=== PATIENT | female | born 1955 | race Hispanic/Latino ===

== ENCOUNTER 2017-10-10 16:31 | Inpatient (IN) | payer OTHER ==
[~2017-10-10] VITALS: Ht 152.4 cm; Wt 61.3 kg
[2017-10-10] MEDS ORDERED: SODIUM CHLORIDE 0.9% 1000ML 1,000 ML IV ONE ×3 (17:19→21:45)
[2017-10-10] MEDS ORDERED: ONDANSETRON HCL MDV 20ML 2 MG/ML VIAL ONE ×2 (17:19→21:17)
[2017-10-10] MEDS ORDERED: MORPHINE SULFATE 4 MG/1ML SYG ONE (17:20)
[2017-10-10 17:26] LABS: HEMATOCRIT 37.1 % (36-48); MEAN CORPUSCULAR HEMOGLOBIN 28.3 pg (27.0-33.0); MEAN CORPUSCULAR HGB CONC 34.9 g/dL (32.0-36.0); MEAN CORPUSCULAR VOLUME 81.1 fL (79-99); NUCLEATED RED BLOOD CELLS 0.1 % (0.0-0.19); PLATELET COUNT (AUTO) 139 K/uL (130-400); RED BLOOD CELL COUNT(AUTO) 4.58 MIL/uL (4.00-5.50); RED CELL DISTRIBUTION WIDTH 14.1 % (11.0-15.5); WHITE BLOOD COUNT (AUTO) 5.3 K/uL (4.8-10.8)
[2017-10-10 17:37] LABS: CREATININE 1.2 mg/dL (0.5-1.5); POTASSIUM 3.5 mmol/L (3.5-5.1)
[2017-10-10 17:41] LABS: ALBUMIN 4.1 g/dL (3.5-5.0); BILIRUBIN,TOTAL 0.5 mg/dL (0.2-1.0); TOTAL PROTEIN, SERUM 8.7 g/dL (6.0-8.3)
[2017-10-10 17:52] LABS: BAND NEUTROPHILS % (MANUAL) 16 % (0-2); LYMPHOCYTES % (MANUAL) 4 % (22-44); METAMYELOCYTES % 1 % (0-0); SEGMENTED NEUTROPHILS % 79 % (40-70)
[2017-10-10 17:53] LABS: MAN.DIFF COMMENT-IMPRESSION MANUAL DIFFERENTIAL
[2017-10-10] MEDS ORDERED: PROMETHAZINE HCL 25 MG/ML 1ML AMPULE IM ONE (17:55)
[2017-10-10] MEDS ORDERED: IOPAMIDOL-370 75 ML VIAL IV ONE (18:33)
[2017-10-10 19:31] LABS: APPEARANCE,URINE Clear (CLEAR); BILIRUBIN,URINE Negative (NEGATIVE); COLOR,URINE Yellow (YELLOW); GLUCOSE, URINE (UA) >=1000 mg/dL (NEGATIVE); KETONES,URINE Trace mg/dL (NEGATIVE); LEUKOCYTE ESTERASE ,URINE Negative (NEGATIVE); NITRATE,URINE Positive (NEGATIVE); OCCULT BLOOD,URINE Negative (NEGATIVE); PH,URINE 7.5 (5.0-8.0); PROTEIN,URINE Negative (NEGATIVE); UROBILINOGEN,URINE 0.2 mg/dL (0.2-1.0)
[2017-10-10 19:50] LABS: RBC,URINE None Seen /HPF (0-1)
[2017-10-10 19:51] LABS: BACTERIA,URINE Few /HPF (None Seen); SQUAMOUS EPITHELIAL CELL,UR 0-2 /HPF (0-2); WBC,URINE 0-1 /HPF (0-1)
[2017-10-10] MEDS ORDERED: CEFTRIAXONE SODIUM 1 GM ONE (20:00)
[2017-10-10] MEDS ORDERED: DEXTROSE 50%-WATER 50 ML DISP.SYRIN IV PRN (20:45)
[2017-10-10] MEDS ORDERED: ONDANSETRON HCL 4 MG/2 ML VIAL IVP PRN (20:45)
[2017-10-10] MEDS ORDERED: DiphenhydrAMINE HCL 50 MG/ML VIAL IVP PRN (20:45)
[2017-10-10] MEDS ORDERED: POTASSIUM CHLORIDE 20MEQ/100ML 100 ML IV PRN (20:45)
[2017-10-10] MEDS ORDERED: DIPHENHYDRAMINE HCL 25 MG CAPSULE PO PRN (20:45)
[2017-10-10] MEDS ORDERED: PROMETHAZINE HCL 25 MG/ML 1ML AMPULE IM PRN (20:45)
[2017-10-10] MEDS ORDERED: MAG HYDROX/AL HYDROX/SIMETH ES 30 ML SUSP UDCUP PO PRN (20:45)
[2017-10-10] MEDS ORDERED: GUAIFENESIN SUGAR-FREE 100 MG/5 ML UDCUP PO PRN (20:45)
[2017-10-10] MEDS ORDERED: ACETAMINOPHEN 325 MG TAB PO PRN (20:45)
[2017-10-10] MEDS ORDERED: GLUCAGON 1MG KIT 1 MG ML IM PRN (20:45)
[2017-10-10] MEDS ORDERED: HYDROCODONE/ACETAMINOPHEN 5/325 MG TAB PO PRN (20:45)
[2017-10-10] MEDS ORDERED: NITROGLYCERIN 0.4 MG SL TAB SL PRN (20:45)
[2017-10-10] MEDS ORDERED: LACTULOSE 20 GM/30 ML UDCUP PO PRN (20:45)
[2017-10-10] MEDS ORDERED: POTASSIUM CHLORIDE 10% ELIXIR 20 MEQ/15 ML UDCUP PO PRN (20:45)
[2017-10-10] MEDS ORDERED: CLONIDINE HCL 0.1 MG TABLET PO PRN (20:45)
[2017-10-10] MEDS ORDERED: ZOLPIDEM TARTRATE 5 MG TAB PO PRN (20:45)
[2017-10-10] MEDS ORDERED: LIDOCAINE HCL-MPF 1% 2ML VIAL IJ PRN (20:45)
[2017-10-10] MEDS ORDERED: GUAIFENESIN-DM 200/20 MG 10 ML PO PRN (20:45)
[2017-10-10] MEDS ORDERED: LEVOFLOXACIN 500 MG/D5W 100 ML 100 ML ONE (21:29)
[2017-10-10] MEDS ORDERED: ACETAMINOPHEN 650 MG SUPPOSITORY RC ONE (21:46)
[2017-10-10] MEDS ORDERED: NOREPINEPHRINE BITARTRATE 1 MG/1 ML ML IV ONE (22:57)
[2017-10-11] VITALS (32 sets, daily range): BP systolic 87–150; BP diastolic 47–86
[2017-10-11] MEDS: SODIUM CHLORIDE 0.9% 1000ML 1,000 ML IV SCH ×3 (00:30→17:47)
[2017-10-11] MEDS: INSULIN R PO SS2 SQ SCH ×5 (00:31→21:00)
[2017-10-11] MEDS: TRAMADOL HCL 50 MG TABLET PO PRN (01:24)
[2017-10-11] MEDS ORDERED: GLIP10TA9 PO (01:48)
[2017-10-11] MEDS ORDERED: GEMF600T3 PO (01:48)
[2017-10-11] MEDS ORDERED: NOREPINEPHRINE 4MG/NS 250ML 250 ML IV SCH (02:00)
[2017-10-11 04:19] LABS: HEMATOCRIT 28.1 % (36-48); MEAN CORPUSCULAR HEMOGLOBIN 29.9 pg (27.0-33.0); MEAN CORPUSCULAR HGB CONC 36.4 g/dL (32.0-36.0); MEAN CORPUSCULAR VOLUME 82.1 fL (79-99); PLATELET COUNT (AUTO) 88 K/uL (130-400); RED BLOOD CELL COUNT(AUTO) 3.43 MIL/uL (4.00-5.50); WHITE BLOOD COUNT (AUTO) 10.8 K/uL (4.8-10.8)
[2017-10-11 04:27] LABS: ALBUMIN 2.4 g/dL (3.5-5.0); BILIRUBIN,TOTAL 0.6 mg/dL (0.2-1.0); CREATININE 1.5 mg/dL (0.5-1.5); POTASSIUM 3.6 mmol/L (3.5-5.1); TOTAL PROTEIN, SERUM 5.7 g/dL (6.0-8.3)
[2017-10-11] MEDS: POTASSIUM CHLORIDE 20 MEQ ERTAB PO PRN ×2 (05:32→07:01)
[2017-10-11] MEDS ORDERED: CEFEPIME 1GM+NS 50ML 50 ML IV SCH (13:00)
[2017-10-11] MEDS ORDERED: LACTATED RINGERS 1000ML 1,000 ML IV ONE (13:02)
[2017-10-11] MEDS: CEFEPIME HCL 1 GM VIAL IVP SCH ×2 (14:26→22:04)
[2017-10-11] MEDS ORDERED: LACTATED RINGERS 1000ML IV ONE (15:00)
[2017-10-11] MEDS ORDERED: CEFTRIAXONE SODIUM 1 GM IVP SCH (20:00)
[2017-10-12] VITALS (17 sets, daily range): BP systolic 109–164; BP diastolic 62–97
[2017-10-12] MEDS: SODIUM CHLORIDE 0.9% 1000ML 1,000 ML IV SCH ×4 (01:07→20:27)
[2017-10-12 03:56] LABS: BASOPHILS % (AUTO) 0.3 % (0.0-5.0); EOSINOPHILS % (AUTO) 0.9 % (0.0-8.0); HEMATOCRIT 27.2 % (36-48); MEAN CORPUSCULAR HEMOGLOBIN 29.5 pg (27.0-33.0); MEAN CORPUSCULAR VOLUME 81.9 fL (79-99); MONOCYTES % (AUTO) 7.7 % (3.0-13.0); NEUTROPHILS % (AUTO) 83.1 % (40.0-77.0); PLATELET COUNT (AUTO) 70 K/uL (130-400); RED BLOOD CELL COUNT(AUTO) 3.31 MIL/uL (4.00-5.50); RED CELL DISTRIBUTION WIDTH 14.3 % (11.0-15.5); WHITE BLOOD COUNT (AUTO) 15.1 K/uL (4.8-10.8)
[2017-10-12 04:24] LABS: ALBUMIN 2.3 g/dL (3.5-5.0); BILIRUBIN,TOTAL 0.5 mg/dL (0.2-1.0); CREATININE 1.3 mg/dL (0.5-1.5); MAGNESIUM 1.5 mg/dL (1.80-2.40); PHOSPHORUS 1.5 mg/dL (2.5-4.9); POTASSIUM 4.1 mmol/L (3.5-5.1); TOTAL PROTEIN, SERUM 5.8 g/dL (6.0-8.3)
[2017-10-12] MEDS: INSULIN R PO SS2 SQ SCH ×4 (07:30→21:00)
[2017-10-12] MEDS: CEFEPIME HCL 1 GM VIAL IVP SCH ×2 (08:19→14:47)
[2017-10-12] MEDS: ENOXAPARIN SODIUM 40 MG/0.4 ML SYRINGE SQ SCH ×2 (08:20→09:00)
[2017-10-12 11:13] LABS: HEMATOCRIT 28.3 % (36-48); MEAN CORPUSCULAR HEMOGLOBIN 27.6 pg (27.0-33.0); MEAN CORPUSCULAR HGB CONC 33.4 g/dL (32.0-36.0); MEAN CORPUSCULAR VOLUME 82.6 fL (79-99); PLATELET COUNT (AUTO) 66 K/uL (130-400); RED BLOOD CELL COUNT(AUTO) 3.42 MIL/uL (4.00-5.50); RED CELL DISTRIBUTION WIDTH 14.3 % (11.0-15.5); RETICULOCYTE % (AUTO) 0.74 % (0.42-2.23); WHITE BLOOD COUNT (AUTO) 14.8 K/uL (4.8-10.8)
[2017-10-12 11:33] LABS: BAND NEUTROPHILS % (MANUAL) 23 % (0-2); LYMPHOCYTES % (MANUAL) 9 % (22-44); MAN.DIFF COMMENT-IMPRESSION MANUAL DIFFERENTIAL; METAMYELOCYTES % 2 % (0-0); MONOCYTES % (MANUAL) 2 % (2-9); SEGMENTED NEUTROPHILS % 64 % (40-70)
[2017-10-12 11:34] LABS: PLATELET MORPHOLOGY COMMENT DECREASED
[2017-10-12] MEDS: DOCUSATE SODIUM 100 MG CAP PO SCH (14:58)
[2017-10-12] MEDS ORDERED: POTASSIUM PHOS 15 mMOL+NS250ML 250 ML IV SCH (16:00)
[2017-10-12] MEDS ORDERED: MAGNESIUM SULFATE 1 GM in SODIUM CHLORIDE 0.9% 50 ML IV PRN (16:00)
[2017-10-12] MEDS ORDERED: MAGNESIUM 2GM PREMIX 50ML 50 ML IV SCH (18:15)
[2017-10-12] MEDS ORDERED: ONDANSETRON HCL MDV 20ML 2 MG/ML VIAL ONE (18:22)
[2017-10-12] MEDS: TRAMADOL HCL 50 MG TABLET PO PRN (22:21)
[2017-10-13] MEDS: CEFEPIME HCL 1 GM VIAL IVP SCH ×4 (00:04→22:33)
[2017-10-13] MEDS: SODIUM CHLORIDE 0.9% 1000ML 1,000 ML IV SCH ×4 (03:07→22:33)
[2017-10-13 04:00] VITALS: BP 149/81
[2017-10-13 05:44] LABS: BASOPHILS % (AUTO) 0.2 % (0.0-5.0); HEMATOCRIT 28.6 % (36-48); LYMPHOCYTES % (AUTO) 5.5 % (21.0-51.0); MEAN CORPUSCULAR HEMOGLOBIN 27.7 pg (27.0-33.0); MEAN CORPUSCULAR HGB CONC 33.6 g/dL (32.0-36.0); MEAN CORPUSCULAR VOLUME 82.6 fL (79-99); MONOCYTES % (AUTO) 6.2 % (3.0-13.0); NEUTROPHILS % (AUTO) 88.1 % (40.0-77.0); PLATELET COUNT (AUTO) 75 K/uL (130-400); RED BLOOD CELL COUNT(AUTO) 3.46 MIL/uL (4.00-5.50); RED CELL DISTRIBUTION WIDTH 14.4 % (11.0-15.5); WHITE BLOOD COUNT (AUTO) 14.1 K/uL (4.8-10.8)
[2017-10-13 05:54] LABS: INR 1.02 (0.85-1.15); PROTHROMBIN TIME 10.7 SEC (9.6-11.6)
[2017-10-13] MEDS: INSULIN R PO SS2 SQ SCH ×4 (05:54→21:00)
[2017-10-13 05:57] LABS: HEMOGLOBIN A1C 9.8 % (4.0-6.0)
[2017-10-13 05:59] LABS: ALANINE AMINOTRANSFERASE 14 U/L (12-78); ALBUMIN 2.2 g/dL (3.5-5.0); ASPARTATE AMINOTRANSFERASE 19 U/L (10-37); BILIRUBIN,TOTAL 0.5 mg/dL (0.2-1.0); CARBON DIOXIDE 22 mmol/L (21-32); CHLORIDE 107 mmol/L (101-111); CHOLESTEROL 138 mg/dL (<200); CREATININE 0.9 mg/dL (0.5-1.5); GLOMERULAR FILTR. RATE CALC 67 mL/min (>60); GLUCOSE,RANDOM 147 mg/dL (70-105); HDL CHOLESTEROL 12 mg/dL (35-85); LDL DIRECT 72 mg/dL (0-99); PHOSPHORUS 2.7 mg/dL (2.5-4.9); POTASSIUM 4.2 mmol/L (3.5-5.1); SODIUM SERUM 140 mmol/L (136-145); TOTAL PROTEIN, SERUM 6.1 g/dL (6.0-8.3); TRIGLYCERIDES 268 mg/dL (30-200); UREA NITROGEN, BLOOD 12 mg/dL (7-18)
[2017-10-13 06:00] LABS: AMMONIA < 10 umol/L (11-32)
[2017-10-13] MEDS ORDERED: ONDANSETRON HCL MDV 20ML 2 MG/ML VIAL ONE (06:34)
[2017-10-13 07:00] VITALS: BP 133/74
[2017-10-13] MEDS: ACETAMINOPHEN 325 MG TAB PO PRN (08:57)
[2017-10-13] MEDS: ONDANSETRON HCL MDV 20ML 2 MG/ML VIAL IVP PRN ×2 (10:33→15:31)
[2017-10-13 11:00] VITALS: BP 135/78
[2017-10-13] MEDS: DOCUSATE SODIUM 100 MG CAP PO SCH (14:30)
[2017-10-13 19:35] VITALS: BP 153/92
[2017-10-13] MEDS: METOCLOPRAMIDE 10 MG TABLET PO SCH (20:11)
[2017-10-13 23:58] VITALS: BP 144/82
[2017-10-14] MEDS: TRAMADOL HCL 50 MG TABLET PO PRN ×2 (02:05→06:44)
[2017-10-14 04:20] VITALS: BP 148/79
[2017-10-14] MEDS: CEFEPIME HCL 1 GM VIAL IVP SCH ×3 (06:44→23:22)
[2017-10-14] MEDS: ONDANSETRON HCL MDV 20ML 2 MG/ML VIAL IVP PRN ×2 (06:44→14:13)
[2017-10-14] MEDS: SODIUM CHLORIDE 0.9% 1000ML 1,000 ML IV SCH ×4 (06:45→21:41)
[2017-10-14 07:00] VITALS: BP 149/88
[2017-10-14] MEDS: INSULIN R PO SS2 SQ SCH ×4 (07:29→21:00)
[2017-10-14] MEDS: METOCLOPRAMIDE 10 MG TABLET PO SCH ×2 (09:03→21:23)
[2017-10-14 11:00] VITALS: BP 152/89
[2017-10-14] MEDS: DOCUSATE SODIUM 100 MG CAP PO SCH (11:18)
[2017-10-14 19:25] VITALS: BP 147/61
[2017-10-14] MEDS: ACETAMINOPHEN 325 MG TAB PO PRN (21:42)
[2017-10-15 00:35] VITALS: BP 121/66
[2017-10-15] MEDS: SODIUM CHLORIDE 0.9% 1000ML 1,000 ML IV SCH ×5 (01:47→20:14)
[2017-10-15 03:37] VITALS: BP 120/60
[2017-10-15] MEDS: CEFEPIME HCL 1 GM VIAL IVP SCH (06:11)
[2017-10-15] MEDS: INSULIN R PO SS2 SQ SCH ×3 (06:13→21:00)
[2017-10-15 07:00] VITALS: BP 143/78
[2017-10-15] MEDS: METOCLOPRAMIDE 10 MG TABLET PO SCH ×2 (10:08→20:14)
[2017-10-15 11:00] VITALS: BP 144/72
[2017-10-15] MEDS: MEROPENEM 500 MG VIAL IVP SCH ×2 (13:32→20:14)
[2017-10-15] MEDS: DOCUSATE SODIUM 100 MG CAP PO SCH (13:32)
[2017-10-15] MEDS ORDERED: MEROPENEM 500MG+NS 50ML 50 ML IV SCH (14:00)
[2017-10-15 16:24] VITALS: BP 160/92
[2017-10-15 19:05] VITALS: BP 148/83
[2017-10-15] MEDS: ACETAMINOPHEN 325 MG TAB PO PRN (21:18)
[2017-10-16 00:20] VITALS: BP 123/70
[2017-10-16] MEDS: SODIUM CHLORIDE 0.9% 1000ML 1,000 ML IV SCH ×2 (02:16→03:41)
[2017-10-16 04:22] VITALS: BP 121/58
[2017-10-16] MEDS: MEROPENEM 500 MG VIAL IVP SCH ×2 (05:13→14:00)
[2017-10-16 06:18] LABS: BASOPHILS % (AUTO) 0.5 % (0.0-5.0); HEMATOCRIT 30.7 % (36-48); LYMPHOCYTES % (AUTO) 21.1 % (21.0-51.0); MEAN CORPUSCULAR HEMOGLOBIN 29.3 pg (27.0-33.0); MEAN CORPUSCULAR HGB CONC 36.7 g/dL (32.0-36.0); MEAN CORPUSCULAR VOLUME 79.8 fL (79-99); MONOCYTES % (AUTO) 24.2 % (3.0-13.0); NEUTROPHILS % (AUTO) 54.2 % (40.0-77.0); PLATELET COUNT (AUTO) 165 K/uL (130-400); RED BLOOD CELL COUNT(AUTO) 3.85 MIL/uL (4.00-5.50); RED CELL DISTRIBUTION WIDTH 14.1 % (11.0-15.5); WHITE BLOOD COUNT (AUTO) 4.6 K/uL (4.8-10.8)
[2017-10-16 06:35] LABS: ALBUMIN 2.5 g/dL (3.5-5.0); BILIRUBIN,TOTAL 0.5 mg/dL (0.2-1.0); CREATININE 0.8 mg/dL (0.5-1.5); POTASSIUM 3.2 mmol/L (3.5-5.1); TOTAL PROTEIN, SERUM 6.8 g/dL (6.0-8.3)
[2017-10-16] MEDS: INSULIN R PO SS2 SQ SCH ×2 (06:50→12:23)
[2017-10-16 08:00] VITALS: BP 154/86
[2017-10-16] MEDS: METOCLOPRAMIDE 10 MG TABLET PO SCH (08:48)
[2017-10-16 12:00] VITALS: BP 143/84
[2017-10-16] MEDS: POTASSIUM CHLORIDE 20 MEQ ERTAB PO PRN ×2 (12:17→14:57)
[2017-10-16] MEDS: DOCUSATE SODIUM 100 MG CAP PO SCH (14:30)
== END 2017-10-16 15:10 | disposition home or self-care (01) | DRG 871 ==
LOC: EDH 16:31 → EDHIP 16:32 → OBSVTOIN 16:32 → 2BH 10-11 00:25 → 3DH 10-12 22:16
PROVIDERS: ADMIT Family Medicine; ATTEND Family Medicine
DX: A41.51 Sepsis due to Escherichia coli [E. coli] (principal); R65.21 Severe sepsis with septic shock; D69.6 Thrombocytopenia, unspecified; N13.30 Unspecified hydronephrosis; E86.0 Dehydration; N39.0 Urinary tract infection, site not specified; B96.89 Other specified bacterial agents as the cause of diseases classified elsewhere; E11.9 Type 2 diabetes mellitus without complications; E78.5 Hyperlipidemia, unspecified; I10 Essential (primary) hypertension
CPT/HCPCS: 36415; 71045; 74177; 76705; 80053; 80061; 81001; 82140; 82550; 82948; 83036; 83605; 83690; 83735; 84100; 84484; 85025; 85027; 85045; 85610; 87040; 87088; 87186; 93005; 99291; A4218; J0692; J0696; J1650; J1815; J1956; J2185; J2270; J2550; J3475; J3490; J7030; J7120; Q9967

== ENCOUNTER 2021-05-26 12:06 | Emergency (ER) | payer OTHER ==
[~2021-05-26] VITALS: Ht 152.4 cm; Wt 56.7 kg
[~2021-05-26 12:06] MED LIST: GEMF600T89 PO; GLIP10TA9 PO
[2021-05-26 12:40] LABS: BASOPHILS % (AUTO) 0.8 % (0.0-5.0); EOSINOPHILS % (AUTO) 0.6 % (0.0-8.0); HEMATOCRIT 32.6 % (36-48); LYMPHOCYTES % (AUTO) 21.4 % (21.0-51.0); MEAN CORPUSCULAR HEMOGLOBIN 29.7 pg (27.0-33.0); MEAN CORPUSCULAR HGB CONC 35.6 g/dL (32.0-36.0); MEAN CORPUSCULAR VOLUME 83.6 fL (79-99); MONOCYTES % (AUTO) 10.6 % (3.0-13.0); NEUTROPHILS % (AUTO) 66.4 % (40.0-77.0); PLATELET COUNT (AUTO) 170 K/uL (130-400); RED CELL DISTRIBUTION WIDTH 12.2 % (11.0-15.5)
[2021-05-26 12:56] LABS: ALBUMIN 4.2 g/dL (3.5-5.0); BILIRUBIN,TOTAL 0.4 mg/dL (0.2-1.0); CREATININE 1.2 mg/dL (0.5-1.5); INR 1.69 (0.85-1.15); POTASSIUM 3.8 mmol/L (3.5-5.1); PROTHROMBIN TIME 17.6 SEC (9.6-11.6); TOTAL PROTEIN, SERUM 8.2 g/dL (6.0-8.3)
[2021-05-26 13:01] LABS: B-TYPE NATRIURETIC PEPTIDE 11 pg/mL (0-100)
[2021-05-26 13:16] LABS: APPEARANCE,URINE CLEAR (CLEAR); BILIRUBIN,URINE NEGATIVE (NEGATIVE); COLOR,URINE YELLOW (YELLOW); GLUCOSE, URINE (UA) NEGATIVE (NEGATIVE); KETONES,URINE NEGATIVE (NEGATIVE); LEUKOCYTE ESTERASE ,URINE NEGATIVE (NEGATIVE); NITRATE,URINE NEGATIVE (NEGATIVE); OCCULT BLOOD,URINE NEGATIVE (NEGATIVE); PROTEIN,URINE NEGATIVE (NEGATIVE); UROBILINOGEN,URINE 0.2 mg/dL (0.2-1.0)
[2021-05-26] MEDS ORDERED: NAPR-1196 PO (14:48)
[2021-05-26 14:55] VITALS: BP 133/62
== END 2021-05-26 15:03 | disposition home or self-care (01) ==
LOC: EDH 12:06
DX: R07.89 Other chest pain (principal); R53.1 Weakness; E11.9 Type 2 diabetes mellitus without complications; E78.00 Pure hypercholesterolemia, unspecified; I10 Essential (primary) hypertension; Z88.0 Allergy status to penicillin; Z88.1 Allergy status to other antibiotic agents; Z88.2 Allergy status to sulfonamides; Z79.84 Long term (current) use of oral hypoglycemic drugs
CPT/HCPCS: 36415; 71045; 80053; 81003; 83880; 84484; 85025; 85610; 93005

== ENCOUNTER 2021-11-12 15:09 | Emergency (ER) | payer OTHER ==
[~2021-11-12] VITALS: Ht 152.4 cm; Wt 54.4 kg
[~2021-11-12 15:09] MED LIST changes: +NAPR-1196 PO
[2021-11-12] MEDS ORDERED: 0.9%NACL 1000ML 1,000 ML IV SCH (15:30)
[2021-11-12] MEDS ORDERED: ONDANSETRON 4MG INJ IVP ONE (15:30)
[2021-11-12 15:35] LABS: BASOPHILS % (AUTO) 0.3 % (0.0-5.0); HEMATOCRIT 34.5 % (36-48); LYMPHOCYTES % (AUTO) 9.2 % (21.0-51.0); MEAN CORPUSCULAR HEMOGLOBIN 28.1 pg (27.0-33.0); MONOCYTES % (AUTO) 6.5 % (3.0-13.0); NEUTROPHILS % (AUTO) 83.7 % (40.0-77.0); PLATELET COUNT (AUTO) 161 K/uL (130-400); RED BLOOD CELL COUNT(AUTO) 4.06 MIL/uL (4.00-5.50); RED CELL DISTRIBUTION WIDTH 12.4 % (11.0-15.5); WHITE BLOOD COUNT (AUTO) 7.2 K/uL (4.8-10.8)
[2021-11-12 15:45] LABS: CREATININE 1.3 mg/dL (0.5-1.5)
[2021-11-12 15:52] LABS: ALBUMIN 3.8 g/dL (3.5-5.0); BILIRUBIN,TOTAL 0.6 mg/dL (0.2-1.0); TOTAL PROTEIN, SERUM 8.3 g/dL (6.0-8.3)
[2021-11-12 16:12] LABS: APPEARANCE,URINE Clear (CLEAR); BILIRUBIN,URINE Negative (NEGATIVE); COLOR,URINE Yellow (YELLOW); GLUCOSE, URINE (UA) Negative (NEGATIVE); KETONES,URINE 15 mg/dL (NEGATIVE); LEUKOCYTE ESTERASE ,URINE Trace (NEGATIVE); NITRATE,URINE Negative (NEGATIVE); OCCULT BLOOD,URINE Negative (NEGATIVE); PH,URINE 6.5 (5.0-8.0); PROTEIN,URINE Trace mg/dL (NEGATIVE)
[2021-11-12 16:16] LABS: INFLUENZA TYPE A NEGATIVE FOR TYPE A (NEG)
[2021-11-12 16:17] LABS: INFLUENZA TYPE B NEGATIVE FOR TYPE B (NEG)
[2021-11-12 16:24] LABS: BACTERIA,URINE None Seen /HPF (None Seen); RBC,URINE None Seen /HPF (0-1)
[2021-11-12 16:25] LABS: SQUAMOUS EPITHELIAL CELL,UR None Seen /HPF (0-2)
[2021-11-12] MEDS ORDERED: ONDA-104 PO (18:20)
[2021-11-12 19:02] VITALS: BP 142/84
== END 2021-11-12 18:55 | disposition home or self-care (01) ==
LOC: EDH 15:09
DX: A08.4 Viral intestinal infection, unspecified (principal); E11.65 Type 2 diabetes mellitus with hyperglycemia; E78.00 Pure hypercholesterolemia, unspecified; I11.9 Hypertensive heart disease without heart failure; Z79.1 Long term (current) use of non-steroidal anti-inflammatories (NSAID); Z79.84 Long term (current) use of oral hypoglycemic drugs; Z88.0 Allergy status to penicillin; Z88.1 Allergy status to other antibiotic agents; Z88.2 Allergy status to sulfonamides
CPT/HCPCS: 36415; 71045; 80053; 81001; 84484; 85025; 87804 ×2; 96361; 96374; 99284; J2405; J7030